=== PATIENT | female | born 1985 | race Caucasian/White ===

== ENCOUNTER 2018-06-06 21:48 | Inpatient (IN) | payer OTHER ==
[2018-06-06 21:52] VITALS: BMI 27.7
--- NOTE | 2018-06-06 22:16 | OBADHP ---
Datetime: 06/06/2018 22:00 Admit Comment, IP Provider: 32yo IUP at 38w sent for IOL : +FM; no CTX; no VB Arrested growth MFM recommends delivery PMH: Denies PSH: denies POBGYNH: denies STD TOPx 1 PSoH: Denies smoking ETOH drugs A: IUP at 38w IOL PLAN: admit to L_D Discussion about IOL, medications, pain management, labor, delivery and care. Her questoins answered Extremities - PN: Normal Abdomen - PN: Normal Back - PN: Normal Lungs - PN: Normal Heart - PN: Normal Neurologic - PN: Normal HEENT - PN: Normal General - PN: Normal Presentation-Admit: Vertex Membranes, Provider: Intact Pool Provider: Negative IP Hx Assessment: The History has been Reviewed and is Current IP Chief Complaint: Other FHR Category Provider Fetus A: Category I Dilatation, Provider: 0 Effacement, Provider: 0 Genitourinary Exam: Normal DTRs - PN: Normal IP Adm Impression: Term, intrauterine ; No Active Labor; Intact Membranes IP Admit Plan: Admit to unit; Initiate labor induction protocol
[2018-06-06 23:02] LABS: BASO % 0.3 % (0.0-2.0); EOS # 0.2 K/uL (0.0-0.7); EOS % 1.8 % (0.0-4.0); HEMOGLOBIN 11.6 g/dL (12.0-16.0); LYMPH # 2.5 K/uL (1.0-4.3); LYMPH % 27.2 % (20.0-40.0); MEAN CELL VOLUME 95.9 fl (81.0-99.0); MEAN CORPUSCULAR HEMOGLOBIN 34.3 pg (27.0-31.0); MEAN CORPUSCULAR HGB CONC 35.8 g/dL (33.0-37.0); MONO # 0.6 K/uL (0.0-0.8); MONO % 6.7 % (0.0-10.0); NEUT # 5.8 K/uL (1.8-7.0); NRBC % 0.1 % (0.0-0.0); RBC 3.38 Mil/uL (3.80-5.20); WHITE BLOOD COUNT 9.1 K/uL (4.8-10.8)
--- NOTE | 2018-06-07 15:35 | OBPN ---
Datetime: 06/06/2018 22:00 IP Progress Impression: Normal progression of labor IP Informed Consent Obtain: Vaginal Delivery IP Progress Plan: Continue present management Pool Provider: Negative Membranes, Provider: Intact Presentation-Admit: Vertex IP Progress Note Comment: Patient doing well reports contractions being mild to moderate intensity p atient denies rupture of membranes good movement Tocometer contractions every 2-3 heart rate 140s to 150s Assessment and plan induction of labor secondary to abdominal circumference of 1% Continue Cytotec Anticipate normal vaginal delivery FHR Category Provider Fetus A: Category I Dilatation, Provider: 0 Effacement, Provider: 0 NICHD Decel Fetus A IP Provider: None
[2018-06-08] MEDS ORDERED: Oxytocin 30 UNIT 30 UNITS/500 ML BAG IV ONE (16:06)
[2018-06-08] MEDS: Lactated Ringer's 1,000 ML IV SCH (17:00)
--- NOTE | 2018-06-08 21:07 | OBPN ---
Datetime: 06/08/2018 16:04 IP Progress Impression: Reassuring heart rate IP Procedures: Sterile Vag Exam IP Progress Plan: Continue present management; Augmentation Contraction Comments Provider: occasional FHR - Baseline A Provider: 120s IP Progress Note Comment: Plan to start pitocin augmentation. Discussed plan with patient and all p atient questions answered. Vital Signs Provider: Reviewed; Within Normal Limits NICHD Accel Fetus A IP Provider: [id number] FHR Category Provider Fetus A: Category I NICHD Variability Prov Fetus A: Moderate 6-25bpm Dilatation, Provider: 1-2 Effacement, Provider: 50 Station, Provider: -2 NICHD Decel Fetus A IP Provider: None Datetime: 06/08/2018 08:17 IP Progress Impression Other: Early induction of labor Gestation - Est Wks by US: 39.0 Datetime: 06/07/2018 22:02 Membranes, Provider: Intact
--- NOTE | 2018-06-09 00:12 | OBPN ---
Datetime: 06/09/2018 00:08 IP Progress Impression: Rupture of membranes IP Procedures: Sterile Vag Exam IP Progress Plan: Continue present management; Augmentation Membranes, Provider: Ruptured Amniotic Fluid Color, Provider: Clear Contraction Comments Provider: q4-5min FHR - Baseline A Provider: 120s IP Progress Note Comment: SROM. Category I FHT. Plan to continue current management. Discussed pl an with patient and all patient questions answered. Vital Signs Provider: Reviewed; Within Normal Limits NICHD Accel Fetus A IP Provider: [id number] FHR Category Provider Fetus A: Category I NICHD Variability Prov Fetus A: Moderate 6-25bpm Dilatation, Provider: 2 Effacement, Provider: 50 Station, Provider: -1 NICHD Decel Fetus A IP Provider: None
[2018-06-09] MEDS ORDERED: Fentanyl/Bupivacaine HCl 250 ML EPI ONE (01:06)
[2018-06-09] MEDS: Lactated Ringer's 1,000 ML IV SCH (07:15)
[2018-06-09] MEDS ORDERED: Lactated Ringer's 1,000 ML IV SCH ×2 (08:00)
[2018-06-09] MEDS ORDERED: Oxytocin 30 UNIT 30 UNITS/500 ML BAG IV ONE (10:20)
[2018-06-09] MEDS ORDERED: OXYTOCIN/0.9 % NS 20 UNIT/1,000 ML BAG IV SCH (10:30)
[2018-06-09] MEDS ORDERED: Lidocaine Hydrochloride 10 ML INJ ONE (10:55)
[2018-06-09] MEDS ORDERED: Oxycodone/Acetaminophen 5/325 mg Tab PO PRN (17:56)
[2018-06-09] MEDS ORDERED: Benzocaine/Menthol SPRAY TOP PRN ×2 (17:56→18:33)
--- NOTE | 2018-06-09 18:01 | OBDS ---
DELIVERY PERSONNEL Delivery Doctor: Fely Finley MD/Dr. Herrera Dental Sales Representative: MillyAbranie RN MATERNAL INFORMATION Delivery Anesthesia: Epidural Medications in Delivery: Pitocin 30 mu/500 mL Estimated Blood Loss (ml): 200 Placenta Cultured: No Maternal Complications: None Provider Comments: Delivered live baby boy at 2:30 PM the baby was bulb suctioned on the perineum an d transferred to the maternal chest. The cord was clamped and cut 3 vessels noted cord blood was obta ined and sent to lab. The placenta was delivered at 2:38 PM intact. Estimated blood loss was 200 mL. There was a second-degree laceration which was repaired with 2-0 rapide. The mother tolerated the pro cedure well the baby went to the well-baby nursery with Apgars of 9 and 9. LABOR SUMMARY EDC: 06/15/2018 00:00 No. Babies in Womb: 1 Attempted: No Labor Anesthesia: Epidural LABOR INFORMATION Reason for Induction: Intrauterine Growth Retardation Onset of Labor: 06/09/2018 10:16 Complete Dilatation: 06/09/2018 12:21 Cervical Ripening Agents: Cervidil; Cytotec @ Oxytocin: Augmentation Group B Beta Strep: Negative Antibiotics # of Doses: 0 Antibiotics Time of Last Dose: n/a Steroids Given: None Reason Steroids Not Administered: Not Applicable MEMBRANES Membranes Rupture Method: Spontaneous Rupture of Membranes: 06/08/2018 23:37 Length of Rupture (hrs): 14.88 Amniotic Fluid Color: Clear Amniotic Fluid Amount: Large Amniotic Fluid Odor: None STAGES OF LABOR Stage 1 hrs: 2 Stage 1 min: 5 Stage 2 hrs: 2 Stage 2 min: 9 Stage 3 hrs: 0 Stage 3 min: 8 Total Time in Labor hrs: 4 Total Time in Labor min: 22 VAGINAL DELIVERY Laceration Extension: Second Degree Laceration Type: Perineal Laceration Repair: Yes Initial Vag Sponge Count: 10 Final Vag Sponge Count: 10 Initial Vag Sharps Count: 1 Final Vag Sharps Count: 1 Sponge Count Correct: Yes Sharps Count Correct: Yes BABY A INFORMATION Infant Delivery Date/Time: 06/09/2018 14:30 Method of Delivery: Vaginal Born in Route : No : N/A Forceps: N/A Vacuum Extraction: N/A Shoulder Dystocia : No SHOULDER DYSTOCIA BABY A Delivery Date/Time: 06/09/2018 14:30 PRESENTATION/POSITION BABY A Presentation: Cephalic Cephalic Presentation: Vertex Breech Presentation: N/A PLACENTA INFORMATION BABY A Placenta Delivery Time : 06/09/2018 14:38 Placenta Method of Delivery: Spontaneous Placenta Status: Delivered SCORES BABY A Heart Rate 1 min: >100 bpm Resp Effort 1 min: Good Cry Reflex Irritability 1 min: Cough or Sneeze or Pulls Away Muscle Tone 1 min: Active Motion Color 1 min: Body [place], Extremities Blue Resuscitation Effort 1 min: N/A SCORE 1 MIN: 9 Heart Rate 5 min: >100 bpm Resp Effort 5 min: Good Cry Reflex Irritability 5 min: Cough or Sneeze or Pulls Away Muscle Tone 5 min: Active Motion Color 5 min: Body [place], Extremities Blue Resuscitation Effort 5 min: N/A SCORE 5 MIN: 9 INFORMATION BABY A Gestational Age at Delivery: 39.1 Gestational Status: Term Infant Outcome : Liveborn Condition : Stable Sex: Male IDENTIFICATION/MEDS BABY A ID Band Number: [id number] WEIGHT/LENGTH BABY A Infant Birthweight (gms): 2880 Weight (lb): 6 Weight (oz): 6 CORD INFORMATION BABY A No. Cord Vessels: 3 Nuchal Cord : Around Neck x2, Tight Cord Blood Taken: Yes Suction: Mouth; Nose
[2018-06-10 07:46] LABS: BASO # 0.1 K/uL (0.0-0.2); BASO % 1.2 % (0.0-2.0); EOS # 0.2 K/uL (0.0-0.7); EOS % 1.4 % (0.0-4.0); LYMPH # 2.3 K/uL (1.0-4.3); LYMPH % 19.3 % (20.0-40.0); MEAN CELL VOLUME 97.3 fl (81.0-99.0); MEAN CORPUSCULAR HGB CONC 33.9 g/dL (33.0-37.0); MEAN PLATELET VOLUME 10.6 fl (7.2-11.7); MONO # 0.8 K/uL (0.0-0.8); MONO % 6.5 % (0.0-10.0); NEUT # 8.5 K/uL (1.8-7.0); NEUT % 71.6 % (50.0-75.0); RBC 3.33 Mil/uL (3.80-5.20); RED CELL DISTRIBUTION WIDTH 13.2 % (11.5-14.5); WHITE BLOOD COUNT 11.8 K/uL (4.8-10.8)
--- NOTE | 2018-06-10 09:52 | OBPPN ---
Datetime: 06/10/2018 08:05 PP Pain Prov: Within normal limits PP Nausea Prov: Denies PP Flatus Prov: Yes PP BM Prov: No PP Abdomen/Uterus Prov: Normal PP Lochia Prov: Normal PP Extremities Prov: Normal PP Comments Phys Exam Prov: General: Alert, oriented, in no acute distress Abdomen: uterine fundus is firm and below the level of the umbilicus Ext: 1+ pitting edema to the mid mcd[place], no calf tenderness PP Impression Prov: Normal progression PP Plan Prov: Continue present management PP Impression Other Prov: 32yo G2 now P1 now PPD #1 after @ 39.1 PP Plan Other Prov: Continue motrin for pain, stool softener available PP Progress Note Prov: Epidural anesthesia has worn off, mild cramping and perineal pain relieved by Motrin. Attempting , met with yesterday. Addendum by Dr. Odell: I have evaluated the patient and agree with the above IP PP Procedures: None Vital Signs Provider PP: Reviewed; Within Normal Limits
--- NOTE | 2018-06-11 09:22 | OBPPN ---
Datetime: 06/11/2018 09:17 PP Pain Prov: Within normal limits PP Nausea Prov: Denies PP Flatus Prov: Yes PP BM Prov: Yes PP Breasts Prov: Normal PP Heart Prov: Normal PP Lungs Prov: Normal PP Abdomen/Uterus Prov: Normal PP Lochia Prov: Normal PP Vulva/Perineum Prov: Normal PP CVA Tenderness Prov: Normal PP Extremities Prov: Normal PP Progress Prov: Normal PP Impression Prov: Normal progression PP Plan Prov: Discharge PP Progress Note Prov: She feels fine ; ready to go home H/H A; S/P day 2 PLAN: discharge home and follow up in 6w Vital Signs Provider PP: Reviewed; Within Normal Limits
--- NOTE | 2018-06-11 10:39 | OBDCSUM ---
Datetime: 06/11/2018 10:38 Discharged to, Provider: Home Follow up at, Provider: [facility] Disch Instr Activity: Normal activity Disch Instr Diet: Regular Discharge Instructions, Provider: Routine instructions given Discharge Diagnosis, Provider: Term Delivered Follow up in weeks, Provider: 6w Disch Referrals: None Contraception discussed, Prov: Yes
[2018-06-12 03:30] VITALS: BP 123/78; PULSE 92; RESP 20; TEMP 98.1; O2SAT 99
== END 2018-06-11 23:29 | disposition home or self-care (01) | DRG 775 ==
LOC: H.L&D 22:27 → H.OB/GYN 06-09 18:00
PROVIDERS: ADMIT Obstetrics & Gynecology; ATTEND Obstetrics & Gynecology
PROC: 4A1HXCZ Monitoring of Products of Conception, Cardiac Rate, External Approach (ICD-10-PCS; 2018-06-06)
PROC: 10E0XZZ Delivery of Products of Conception, External Approach (ICD-10-PCS; principal; 2018-06-09)
PROC: 0KQM0ZZ Repair Perineum Muscle, Open Approach (ICD-10-PCS; 2018-06-09)
DX: O69.1XX0 Labor and delivery complicated by cord around neck, with compression, not applicable or unspecified (principal); Z37.0 Single live birth; O70.1 Second degree perineal laceration during delivery; Z3A.39 39 weeks gestation of pregnancy; O69.81X0 Labor and delivery complicated by cord around neck, without compression, not applicable or unspecified; O36.5930 Maternal care for other known or suspected poor fetal growth, third trimester, not applicable or unspecified